=== PATIENT | female | born 1975 ===

== ENCOUNTER 2020-09-11 11:03 | Outpatient (CLI) | payer OTHER | END 2020-09-11 12:00 | disposition home or self-care (01) | LOC: MRI 11:03 | PROVIDERS: ATTEND Psychiatry & Neurology Neurology | DX: G44.219 Episodic tension-type headache, not intractable (principal); G43.009 Migraine without aura, not intractable, without status migrainosus; G40.209 Localization-related (focal) (partial) symptomatic epilepsy and epileptic syndromes with complex partial seizures, not intractable, without status epilepticus | CPT/HCPCS: 70551 ==

== ENCOUNTER 2025-01-04 06:00 | Day surgery (SDC) | payer OTHER ==
[2024-12-27 09:01] VITALS: BP 128/85
[2024-12-27 09:46] LABS: COVID-19 AG NEGATIVE (NEGATIVE)
[~2025-01-04] VITALS: Ht 160 cm; Wt 81.6 kg
[~2025-01-04 06:00] MED LIST: ARNUITY ELLIP100 MCG IH; AVAPRO300 MG PO; CLIMARA1 EACH; DESMOPRESS10 MCG/0.1 NS; FLONASE16 GM; SYNTHROID75 MCG PO; TOPROL XL50 M1 PO; VITAMIN D-40010 MCG; XOPENEX HFA15 GM
[2025-01-04] MEDS ORDERED: DESMOPRESSIN ACETATE 40 MCG/10 ML ML IV NR (06:30)
[2025-01-04] MEDS ORDERED: GENTAMICIN SULFATE 40 MG/ML VIAL IV ONE (09:30)
[2025-01-04] MEDS ORDERED: TAMSULOSIN HCL 0.4 MG CAP PO ONE ×2 (10:00→12:04)
[2025-01-04] MEDS ORDERED: PHENAZOPYRIDINE HCL 100 MG TABLET PO ONE ×2 (10:00→12:05)
[2025-01-04] MEDS ORDERED: FLUCONAZOLE 200 MG TABLET PO ONE (10:00)
[2025-01-04] MEDS ORDERED: ACETAMINOPHEN 500 MG GEL..CAP PO ONE (13:16)
== END 2025-01-04 14:20 | disposition home or self-care (01) ==
LOC: CIR.AMB 06:00
PROVIDERS: ATTEND Urology
DX: N39.3 Stress incontinence (female) (male) (principal); Z88.2 Allergy status to sulfonamides
CPT/HCPCS: 57288; C1771